=== PATIENT | female | born 1970 | race American Indian/Alaskan Native ===

== ENCOUNTER 2016-04-08 12:13 | Emergency (ER) | payer MEDICARE ==
[2016-04-08 12:21] VITALS: BP 153/102
[2016-04-08] MEDS ORDERED: TYLENOL ONE (13:00)
[2016-04-08] MEDS ORDERED: TYLENOL PO ONE (13:01)
--- NOTE | 2016-04-08 13:10 | Emergency Department Report ---
ED Lower Extremity HPI - General Chief Complaint: Extremity Injury, Lower Stated Complaint: LT KNEE PAIN Time Seen by Provider: 04/08/16 12:56 Source: patient Mode of arrival: Ambulatory Limitations: No Limitations - History of Present Illness Initial Comments: Patient presents with acute L knee pain today. States she twisted her knee with L foot facing outwards while attempting to get in her car. States she heard a pop. Reports pain on movement, walking. Reports hx of R hip fx from similar mechanism. Denies weakness, tingling, numbness. Hx + for hysterectomy 16 years ago. - Related Data Previous Rx's Medication Instructions Recorded Last Taken Type Acetaminophen/Codeine [Tylenol #3] 1 tab PO Q6H PRN #10 tab 04/08/16 Unknown Rx Allergies Allergy/AdvReac Type Severity Reaction Status Date / Time hydroxyzine HCl [From Atarax] Allergy Unknown Verified 04/08/16 12:18 loratadine [From Claritin] Allergy Unknown Verified 04/08/16 12:18 Penicillins Allergy Swelling Verified 04/08/16 12:18 ED Review of Systems ROS: Stated complaint: LT KNEE PAIN Other details as noted in HPI Comment: All other systems reviewed and negative ED Past Medical Hx - Past Medical History Additional medical history: psuedo tumor brain - Surgical History Additional Surgical History: hysterectomy, - Social History Smoking Status: Never Smoker Substance Use Type: None - Medications Home Medications: Home Medications Medication Instructions Recorded Confirmed Last Taken Type Acetaminophen/Codeine [Tylenol #3] 1 tab PO Q6H PRN #10 tab 04/08/16 Unknown Rx ED Physical Exam - General Limitations: No Limitations General appearance: alert, in no apparent distress - Head Head exam: Present: atraumatic, normocephalic - Eye Eye exam: Present: normal appearance, PERRL, EOMI. Absent: scleral icterus, conjunctival injection, periorbital swelling - Neck Neck exam: Present: normal inspection, full ROM - Respiratory Respiratory exam: Present: normal lung sounds bilaterally. Absent: respiratory distress - Cardiovascular Cardiovascular Exam: Present: regular rate, normal rhythm - GI/Abdominal GI/Abdominal exam: Present: soft, normal bowel sounds. Absent: tenderness - Extremities Exam Extremities exam: Present: normal inspection, tenderness (Medial aspect L knee.) , normal capillary refill, joint swelling (mild swelling compared to R.). Absent: full ROM (limited to flexion.), pedal edema, calf tenderness - Back Exam Back exam: Present: normal inspection, full ROM. Absent: tenderness - Neurological Exam Neurological exam: Present: alert, oriented X3, reflexes normal. Absent: normal gait (limping), motor sensory deficit - Psychiatric Psychiatric exam: Present: normal affect, normal mood - Skin Skin exam: Present: warm, dry, intact, normal color. Absent: rash, cyanosis, diaphoretic, erythema, petechiae, pallor, abrasion, ecchymosis ED Course Vital Signs 04/08/16 12:18 Temperature 98.3 F Pulse Rate 96 H Respiratory 18 Rate Blood Pressure 153/102 O2 Sat by Pulse 97 Oximetry ED Lower Extremity MDM - Radiology Data Radiology results: report reviewed "Mild osteoarthritic changes, with small joint effusion, no acute disease processes," per radiology report of L knee xray. Critical care attestation.: If time is entered above; I have spent that time in minutes in the direct care of this critically ill patient, excluding procedure time. ED Disposition Clinical Impression: Left medial knee pain Disposition: DISCHARGED TO HOME OR SELFCARE Is pt being admited?: No Does the pt Need Aspirin: No Condition: Stable Instructions: Knee Pain (ED), Knee Exercises (GEN) Prescriptions: Acetaminophen/Codeine [Tylenol #3] 1 tab PO Q6H PRN #10 tab PRN Reason: Pain Referrals: PRIMARY CARE, [Primary Care Provider] - 2-3 Days SALLIE MCKINNEY MD [Staff Physician] - 2-3 Days
--- NOTE | 2016-04-09 10:45 | XRay Report ---
LEFT KNEE, 3 VIEWS: HISTORY: Left knee pain. FINDINGS: Mild osteoarthritic changes are identified in all 3 compartments. There is moderate tibial spine spurring. Small joint effusion is suspected. No evidence for fracture or bone lesion. IMPRESSION: Mild osteoarthritic changes. Small joint effusion. No acute process is appreciated.
== END 2016-04-08 14:44 | disposition home or self-care (01) ==
LOC: ED 12:13
DX: M25.562 Pain in left knee (principal); Z90.710 Acquired absence of both cervix and uterus; Z88.0 Allergy status to penicillin; Z88.8 Allergy status to other drugs, medicaments and biological substances